=== PATIENT | female | born 1970 | race African-American/Black ===

== ENCOUNTER 2020-11-30 13:11 | Emergency (ER) | payer MEDICAID ==
[~2020-11-30] VITALS: Ht 160 cm; Wt 79.5 kg
[~2020-11-30 13:11] MED LIST: ASPI81TA39 PO; ENAL5TAB17 PO; GABA-1216 PO; HYDR25TA2 PO; LABE100T5 PO
[2020-11-30 16:16] LABS: BASOPHILS % (AUTO) 0.6 % (0.0-2.0); EOSINOPHILS % (AUTO) 1.3 % (1.0-6.0); HEMATOCRIT 40.9 % (36-46); HEMOGLOBIN 13.1 g/dL (12.0-16.0); LYMPHOCYTES # (AUTO) 4.1 K/uL (1.0-4.8); LYMPHOCYTES % (AUTO) 44.4 % (22.0-44.0); MEAN CORPUSCULAR HEMOGLOBIN 25.9 pg (26.0-34.0); MEAN CORPUSCULAR VOLUME 81 fL (80-100); MONOCYTES # (AUTO) 0.7 K/uL (0.1-1.0); MONOCYTES % (AUTO) 7.2 % (2.0-9.0); NEUTROPHILS # (AUTO) 4.3 K/uL (1.8-7.7); NEUTROPHILS % (AUTO) 46.5 % (40.0-70.0); PLATELET COUNT (AUTO) 220 K/uL (150-450); RED BLOOD CELL COUNT(AUTO) 5.06 MIL/uL (4.00-5.20); RED CELL DISTRIBUTION WIDTH 14.4 % (11.5-14.5)
[2020-11-30 16:25] LABS: CALCIUM, TOTAL 9.7 mg/dL (8.8-10.5); CREATININE 1.86 mg/dL (0.60-1.30); POTASSIUM 3.7 mmol/L (3.5-5.1)
[2020-11-30 16:29] LABS: PROTHROMBIN TIME 10.5 SEC (9.4-11.6)
[2020-11-30 16:31] LABS: ALBUMIN 3.9 g/dL (3.4-5.0); BILIRUBIN,TOTAL 0.6 mg/dL (0.1-1.0); TOTAL PROTEIN, SERUM 7.8 g/dL (6.4-8.2)
[2020-11-30] MEDS ORDERED: CloNIDine HCL 0.2 MG TABLET PO ONE (18:30)
[2020-11-30 18:34] VITALS: BP 217/113
== END 2020-11-30 18:41 | disposition home or self-care (01) ==
LOC: EMS 13:18
DX: D25.9 Leiomyoma of uterus, unspecified (principal); F17.210 Nicotine dependence, cigarettes, uncomplicated; I10 Essential (primary) hypertension; F15.10 Other stimulant abuse, uncomplicated; R79.1 Abnormal coagulation profile
CPT/HCPCS: 76856; 80053; 85025; 85610; 85730; 99284

== ENCOUNTER 2021-09-05 10:43 | Emergency (ER) | payer MEDICAID ==
[~2021-09-05] VITALS: Ht 162.6 cm; Wt 77.3 kg
[~2021-09-05 10:43] MED LIST changes: +ATOR10TA69 PO; -ENAL5TAB17 PO; -HYDR25TA2 PO; -LABE100T5 PO; +NIFE-79 PO
[2021-09-05 13:35] VITALS: BP 124/71
[2021-09-05] MEDS ORDERED: HYDROCODONE/ACETAMINOPHEN 10-325 MG TABLET PO ONE (14:00)
== END 2021-09-05 15:14 | disposition home or self-care (01) ==
LOC: EMS 10:43
DX: M25.562 Pain in left knee (principal); I11.0 Hypertensive heart disease with heart failure; I50.9 Heart failure, unspecified; E78.00 Pure hypercholesterolemia, unspecified; F17.210 Nicotine dependence, cigarettes, uncomplicated; F12.90 Cannabis use, unspecified, uncomplicated; Z79.82 Long term (current) use of aspirin
CPT/HCPCS: 99283

== ENCOUNTER 2021-12-02 18:35 | Emergency (ER) | payer MEDICAID ==
[~2021-12-02] VITALS: Ht 160 cm; Wt 75.5 kg
[2021-12-02] MEDS ORDERED: HYDROCODONE/ACETAMINOPHEN 5-325 MG TABLET PO ONE (19:00)
[2021-12-02 20:45] VITALS: BP 140/80
[2021-12-03] MEDS ORDERED: LOSA-381 PO (17:08)
== END 2021-12-02 20:49 | disposition home or self-care (01) ==
LOC: EMS 18:39
DX: S52.502A Unspecified fracture of the lower end of left radius, initial encounter for closed fracture (principal); I11.0 Hypertensive heart disease with heart failure; I50.9 Heart failure, unspecified; E78.00 Pure hypercholesterolemia, unspecified; F12.90 Cannabis use, unspecified, uncomplicated; F17.210 Nicotine dependence, cigarettes, uncomplicated; Z79.899 Other long term (current) drug therapy; W18.39XA Other fall on same level, initial encounter; Y93.89 Activity, other specified; Y92.89 Other specified places as the place of occurrence of the external cause; Y99.8 Other external cause status
CPT/HCPCS: 99283

== ENCOUNTER 2021-12-03 16:55 | Emergency (ER) | payer MEDICAID ==
[~2021-12-03] VITALS: Ht 160 cm; Wt 75.5 kg
[2021-12-03 17:03] VITALS: BP 191/117
[2021-12-03] MEDS ORDERED: LOSA-381 PO (17:08)
[2021-12-03] MEDS ORDERED: HYDROCODONE/ACETAMINOPHEN 5-325 MG TABLET PO ONE (17:45)
== END 2021-12-03 18:53 | disposition home or self-care (01) ==
LOC: EMS 16:57
DX: Z47.89 Encounter for other orthopedic aftercare (principal); I13.0 Hypertensive heart and chronic kidney disease with heart failure and stage 1 through stage 4 chronic kidney disease, or unspecified chronic kidney disease; N18.9 Chronic kidney disease, unspecified; I50.9 Heart failure, unspecified; E78.00 Pure hypercholesterolemia, unspecified; E87.6 Hypokalemia; F17.210 Nicotine dependence, cigarettes, uncomplicated; F10.20 Alcohol dependence, uncomplicated; F12.90 Cannabis use, unspecified, uncomplicated
CPT/HCPCS: 99283

== ENCOUNTER 2021-12-05 11:05 | Emergency (ER) | payer MEDICAID ==
[~2021-12-05] VITALS: Ht 160 cm; Wt 77.3 kg
[~2021-12-05 11:05] MED LIST changes: +LOSA-381 PO
[2021-12-05 11:49] VITALS: BP 140/90
== END 2021-12-05 15:07 | disposition home or self-care (01) ==
LOC: EMS 11:07
DX: S52.502D Unspecified fracture of the lower end of left radius, subsequent encounter for closed fracture with routine healing (principal); I13.10 Hypertensive heart and chronic kidney disease without heart failure, with stage 1 through stage 4 chronic kidney disease, or unspecified chronic kidney disease; N18.9 Chronic kidney disease, unspecified; I50.9 Heart failure, unspecified; E78.00 Pure hypercholesterolemia, unspecified; F17.210 Nicotine dependence, cigarettes, uncomplicated; F12.90 Cannabis use, unspecified, uncomplicated; Z87.898 Personal history of other specified conditions; Z98.890 Other specified postprocedural states; Z47.89 Encounter for other orthopedic aftercare; X58.XXXD Exposure to other specified factors, subsequent encounter
CPT/HCPCS: 99283

== ENCOUNTER 2024-11-16 15:09 | Emergency (ER) | payer MEDICAID ==
[~2024-11-16] VITALS: Ht 165.1 cm; Wt 77.3 kg
[~2024-11-16 15:09] MED LIST changes: +ASPI-1444 PO; -ASPI81TA39 PO; +FURO20TA5 PO; -LOSA-381 PO; +LOSA-382 PO; -NIFE-79 PO; +NIFE90TA91 PO; +SPIR-37 PO
[2024-11-16 16:18] LABS: APPEARANCE,URINE CLEAR (CLEAR); BILIRUBIN,URINE NEGATIVE (NEGATIVE); COLOR,URINE LIGHT YELLOW (YELLOW); GLUCOSE, URINE (UA) NEGATIVE (NEGATIVE); KETONES,URINE NEGATIVE (NEGATIVE); LEUKOCYTE ESTERASE ,URINE NEGATIVE (NEGATIVE); NITRATE,URINE NEGATIVE (NEGATIVE); OCCULT BLOOD,URINE NEGATIVE (NEGATIVE); PH,URINE 5.5 (5.0-8.0); PROTEIN,URINE NEGATIVE (NEGATIVE); SPECIFIC GRAVITIY, URINE 1.012 (1.003-1.030); UROBILINOGEN,URINE <=1.0 mg/dL (<=1.0)
[2024-11-16 16:30] LABS: BACTERIA,URINE Few /HPF (None Seen); RBC,URINE 0-2 /HPF (0-2); WBC,URINE 0-2 /HPF (0-5)
[2024-11-16 17:05] VITALS: TEMP 98.8
[2024-11-16 18:49] LABS: BASOPHILS % (AUTO) 0.6 % (0.0-2.0); EOSINOPHILS % (AUTO) 0.9 % (1.0-6.0); HEMATOCRIT 40.9 % (36-46); HEMOGLOBIN 13.3 g/dL (12.0-16.0); LYMPHOCYTES # (AUTO) 3.5 K/uL (1.0-4.8); LYMPHOCYTES % (AUTO) 35.3 % (22.0-44.0); MEAN CORPUSCULAR HEMOGLOBIN 26.3 pg (26.0-34.0); MEAN CORPUSCULAR HGB CONC 32.4 G/dL (31.0-37.0); MEAN CORPUSCULAR VOLUME 81 fL (80-100); MONOCYTES # (AUTO) 0.5 K/uL (0.1-1.0); MONOCYTES % (AUTO) 4.9 % (2.0-9.0); NEUTROPHILS # (AUTO) 5.8 K/uL (1.8-7.7); NEUTROPHILS % (AUTO) 58.3 % (40.0-70.0); PLATELET COUNT (AUTO) 319 K/uL (150-450); RED BLOOD CELL COUNT(AUTO) 5.05 MIL/uL (4.00-5.20); WHITE BLOOD COUNT (AUTO) 9.9 K/uL (4.5-11.0)
[2024-11-16 19:01] LABS: ANION GAP 7 mmol/L (8-16); CALCIUM, TOTAL 10.1 mg/dL (8.8-10.5); CARBON DIOXIDE 27 mmol/L (22-29); CHLORIDE 107 mmol/L (98-107); CREATININE 1.63 mg/dL (0.60-1.30); GLOMERULAR FILTR. RATE CALC 39 mL/min (>60); GLUCOSE,RANDOM 89 mg/dL (70-110); POTASSIUM 3.9 mmol/L (3.5-5.1); SODIUM SERUM 140 mmol/L (136-145); UREA NITROGEN, BLOOD 29 mg/dL (7-18)
[2024-11-16 19:12] LABS: TROPONIN I-HIGH SENSITIVITY 105 ng/L (<51)
[2024-11-16 19:34] VITALS: BP 146/90; PULSE 72; RESP 18; O2SAT 96
[2024-11-16] MEDS ORDERED: CEPH-558 PO (22:50)
[2024-11-16] MEDS ORDERED: POLY119P3 PO (22:50)
== END 2024-11-16 23:04 | disposition home or self-care (01) ==
LOC: EMS 15:09
DX: K59.00 Constipation, unspecified (principal); R10.30 Lower abdominal pain, unspecified; R31.9 Hematuria, unspecified; I11.0 Hypertensive heart disease with heart failure; I50.9 Heart failure, unspecified; E78.00 Pure hypercholesterolemia, unspecified; F12.90 Cannabis use, unspecified, uncomplicated; F17.210 Nicotine dependence, cigarettes, uncomplicated; Z79.82 Long term (current) use of aspirin; Z79.899 Other long term (current) drug therapy
CPT/HCPCS: 74018; 80048; 81001; 83690; 84484; 85025; 93005; 99285; 36415-L1; 36415-TC